=== PATIENT | female | born 1955 | race Caucasian/White ===

== ENCOUNTER 2018-04-29 09:03 | Emergency (ER) | payer MEDICARE, BC ==
--- NOTE | 2018-04-29 09:39 | EDM.PDOC ---
ED HPI GENERAL MEDICAL PROBLEM - General Chief Complaint: Gastrointestinal Problem Stated Complaint: nauseous, weakness, dizziness Time Seen by Provider: 04/29/18 09:38 Source of Information: Reports: Patient History Limitations: Reports: No Limitations - History of Present Illness INITIAL COMMENTS - FREE TEXT/NARRATIVE: pt just finished a course of clindomycin and she now has very severe diarrhea. She is feeling weak and shakey. Onset: Other ( diarrhea started last nite. ) Duration: Hour(s): Location: Reports: Abdomen Associated Symptoms: Reports: Nausea/Vomiting, Other (pt is feeling very weak and shakey. ) Lower Abdomen Pain Score (Numeric/FACES): 5 - Related Data Allergies Allergy/AdvReac Type Severity Reaction Status Date / Time Iodinated Contrast- Oral and Allergy Severe Hives Verified 10/11/13 09:38 IV Dye [Iodinated Contrast Media - IV Dye] codeine Allergy Intermediate Nausea Verified 10/11/13 09:38 Home Meds: Home Meds Acetaminophen [Tylenol] 650 mg PO Q4H PRN 10/11/13 [History] Cyclobenzaprine [Flexeril] 10 mg PO TID PRN 10/11/13 [History] Hydrocodone/Acetaminophen [Vicodin 5-300 mg Tablet] 1 tab PO ASDIRECTED PRN [History] Ibuprofen [Advil] 400 mg PO Q6H PRN 10/11/13 [History] Lactobacillus Combo No.11 [Probiotic] 1 each PO DAILY 10/11/13 [History] Vitamin B Complex 100 NO.2 [B100 Balanced] 100 mg PO DAILY 10/11/13 [History] Past Medical History HEENT History: Reports: Impaired Vision Musculoskeletal History: Reports: Fibromyalgia Immunologic History: Reports: Other (See Below) Other Immunologic History: babesia - Infectious Disease History Infectious Disease History: Reports: Chicken Pox Social & Family History - Tobacco Use Smoking Status *Q: Never Smoker - Caffeine Use Caffeine Use: Reports: Coffee, Tea - Recreational Drug Use Recreational Drug Use: No ED ROS GENERAL - Review of Systems Review Of Systems: See Below Constitutional: Reports: Malaise, Weakness HEENT: Reports: No Symptoms Respiratory: Reports: No Symptoms Cardiovascular: Reports: No Symptoms Endocrine: Reports: No Symptoms GI/Abdominal: Reports: Diarrhea : Reports: No Symptoms Musculoskeletal: Reports: No Symptoms Skin: Reports: No Symptoms ED EXAM, GI/ABD - Physical Exam Exam: See Below Text/Narrative:: pt is lite headed and dizzy. She has had severe diarrhea. She has just finished a course of clindomycin. Exam Limited By: No Limitations General Appearance: Alert, Moderate Distress Ears: Normal TMs Nose: Normal Inspection Throat/Mouth: Normal Inspection Head: Other (pt has a 2 inch laceration In the left posterior area. She has a hematoma. ) Neck: Normal Inspection Respiratory/Chest: No Respiratory Distress Cardiovascular: Regular Rate, Rhythm, Tachycardia GI/Abdominal Exam: Soft, Tender, Other (pt is not distended. ) (Female) Exam: Deferred Rectal (Female) Exam: Deferred Back Exam: Normal Inspection Extremities: Normal Inspection Neurological: Alert, Oriented, Normal Cognition Psychiatric: Normal Affect Course - Vital Signs Last Recorded V/S: Last Vital Signs Temp 36.9 C 04/29/18 09:30 Pulse 105 H 04/29/18 09:30 Resp 12 04/29/18 09:30 BP 132/82 04/29/18 09:30 Pulse Ox 98 04/29/18 09:30 - Orders/Labs/Meds Labs: Laboratory Tests 04/29/18 04/29/18 04/29/18 Range/Units 09:53 09:53 10:03 WBC 11.4 H (4.5-11.0) K/uL RBC 4.44 (3.30-5.50) M/uL Hgb 13.4 (12.0-15.0) g/dL Hct 40.4 (36.0-48.0) % MCV 91 (80-98) fL MCH 30 (27-31) pg MCHC 33 (32-36) % Plt Count 291 (150-400) K/uL Neut % (Auto) 86 H (36-66) % Lymph % (Auto) 6 L (24-44) % [place] % (Auto) 8 H (2-6) % Eos % (Auto) 0 L (2-4) % Baso % (Auto) 0 (0-1) % Sodium 134 L (140-148) mmol/L Potassium 3.7 (3.6-5.2) mmol/L Chloride 101 (100-108) mmol/L Carbon Dioxide 29 (21-32) mmol/L Anion Gap 7.7 (5.0-14.0) mmol/L BUN 10 (7-18) mg/dL Creatinine 0.8 (0.6-1.0) mg/dL Est Cr Clr Drug Dosing 57.67 mL/min Estimated GFR (MDRD) > 60 (>60) Glucose 129 H (74-106) mg/dL Calcium 8.7 (8.5-10.1) mg/dL Total Bilirubin 0.4 (0.2-1.0) mg/dL AST 22 (15-37) U/L ALT 24 (12-78) U/L Alkaline Phosphatase 80 (46-116) U/L Total Protein 6.5 (6.4-8.2) g/dL Albumin 3.4 (3.4-5.0) g/dL Globulin 3.1 (2.3-3.5) g/dL Albumin/Globulin Ratio 1.1 L (1.2-2.2) Urine Color Yellow Urine Appearance Clear Urine pH 7.0 (4.5-8.0) Ur Specific [place] 1.010 (1.008-1.030) Urine Protein Negative (NEGATIVE) mg/dL Urine Glucose (UA) Normal (NEGATIVE) mg/dL Urine Ketones Negative (NEGATIVE) mg/dL Urine Occult Blood Moderate (NEGATIVE) Urine Nitrite Negative (NEGATIVE) Urine Bilirubin Negative (NEGATIVE) Urine Urobilinogen Normal (NORMAL) mg/dL Ur Leukocyte Esterase Negative (NEGATIVE) Urine RBC 5-10 H (0-5) Urine WBC 0-5 (0-5) Ur Epithelial Cells Few Amorphous Sediment Not seen Urine Bacteria Few Urine Mucus Not seen Meds: Medications Discontinued Medications Generic Name Dose Route Start Last Admin Trade Name Rand PRN Reason Stop Dose Admin Ondansetron HCl 4 mg 04/29/18 09:50 04/29/18 10:01 Zofran IVPUSH 04/29/18 09:51 4 mg ONETIME ONE Administration Vancomycin HCl 250 mg 04/29/18 12:15 04/29/18 12:33 Vancocin 250 Mg/5 Ml Soln PO 04/29/18 12:16 Not Given QID ONE Vancomycin HCl 250 mg 04/29/18 12:45 04/29/18 12:33 Vancocin 250 Mg/5 Ml Soln PO 04/29/18 12:46 250 mg ONETIME ONE Administration - Re-Assessments/Exams Free Text/Narrative Re-Assessment/Exam: 04/29/18 13:14 pt was given 2 liters of fluid. she was given 250 mg of vancomycin. She is feeling better. He Cdiff is positive. Departure - Departure Time of Disposition: 13:16 Disposition: Home, Self-Care 01 Condition: Fair Clinical Impression: Clostridium difficile diarrhea, Dehydration - Discharge Information Instructions: Clostridium Difficile Infection Referrals: Hunter Lizama MD [Primary Care Provider] - Forms: ED Department Discharge Care Plan Goals: push fluids, stick with clear liquids in the next 24 hours, vancomycin 250 mg qid po. appt with Dr Lizama in 4-5 days
[2018-04-29] MEDS ORDERED: Ondansetron 4 MG/2 ML SDV IVPUSH ONE (09:50)
[2018-04-29] MEDS ORDERED: Vancomycin 250 MG/5 ML ML Oral Solution PO ONE ×2 (12:15→12:45)
== END 2018-04-29 13:29 | disposition home or self-care (01) ==
LOC: JP.ED 09:03
DX: A04.72 Enterocolitis due to Clostridium difficile, not specified as recurrent (principal); E86.0 Dehydration; Z88.5 Allergy status to narcotic agent; Z91.041 Radiographic dye allergy status
CPT/HCPCS: 36415; 80053; 81001; 85025; 87493; 96374; 99284; A9270; J2405

== ENCOUNTER 2018-05-24 13:26 | Inpatient (IN) | payer MEDICARE, BC ==
[2018-05-24] MEDS ORDERED: Acetaminophen/HYDROcodone 325-5 MG Tab PO PRN (14:24)
[2018-05-24] MEDS ORDERED: Ibuprofen 600 MG Tab PO PRN (14:24)
[2018-05-24] MEDS ORDERED: Sodium Chloride 0.9% 10 ML Syringe FLUSH PRN (14:24)
[2018-05-24] MEDS ORDERED: Acetaminophen 325 MG Tab PO PRN (14:24)
[2018-05-24] MEDS ORDERED: Polyethylene Glycol 3350 Powder 17 GM Packet PO PRN (14:24)
[2018-05-24] MEDS ORDERED: Ondansetron 4 MG Tab.DIS PO PRN (14:24)
--- NOTE | 2018-05-24 14:32 | PCM.HP ---
H&P History of Present Illness - General Date of Service: 05/24/18 Admit Problem/Dx: Admission Diagnosis/Problem Admission Diagnosis/Problem Diverticulitis Source of Information: Patient, Provider History Limitations: Reports: No Limitations - History of Present Illness Initial Comments - Free Text/Narative: Makayla presents as a direct admission from the clinic. She was seen there yesterday for lower abdominal pain of about 5 days' duration. X-rays did not suggest obstruction and she was encouraged to return today if symptoms had not improved since she felt better after getting some IV fluids. She reports ongoing moderate bilateral lower quadrant pain. This is a sharp as well as achy pain that comes and goes in waves. No obvious triggers to make the pain worse. [id number] pain medications have not provided significant relief. She has had some fevers at home though her temperature today has been normal. Temperatures yesterday were in the upper 99 range. She has not had much of an appetite and has had very poor oral intake. She has had occasional blood in her stool as well as some mucus. She does not report chest pain or shortness of breath. No change in bladder habits. No significant myalgias or arthralgias. A CT scan obtained today in the clinic was suggestive of acute diverticulitis versus other colitis and she was sent to the hospital for direct admission and IV antibiotics. Abdomen Pain Score (Numeric/FACES): 3 - Related Data Allergies/Adverse Reactions: Allergies Allergy/AdvReac Type Severity Reaction Status Date / Time Iodinated Contrast- Oral and Allergy Severe Hives Verified 10/11/13 09:38 IV Dye [Iodinated Contrast Media - IV Dye] codeine Allergy Intermediate Nausea Verified 10/11/13 09:38 Home Medications: Home Meds Acetaminophen [Tylenol] 650 mg PO Q4H PRN 10/11/13 [History] Cyclobenzaprine [Flexeril] 10 mg PO TID PRN 10/11/13 [History] Hydrocodone/Acetaminophen [Vicodin 5-300 mg Tablet] 1 tab PO ASDIRECTED PRN [History] Ibuprofen [Advil] 400 mg PO Q6H PRN 10/11/13 [History] Lactobacillus Combo No.11 [Probiotic] 1 each PO DAILY 10/11/13 [History] Vitamin B Complex 100 NO.2 [B100 Balanced] 100 mg PO DAILY 10/11/13 [History] Dicyclomine [Bentyl] 20 mg PO QIDACANDBED 05/24/18 [History] Meloxicam 15 mg PO DAILY PRN 05/24/18 [History] Past Medical History HEENT History: Reports: Impaired Vision Cardiovascular History: Reports: None Gastrointestinal History: Reports: Diverticulosis Musculoskeletal History: Reports: Arthritis, Fibromyalgia Immunologic History: Reports: Other (See Below) Other Immunologic History: babesia - Infectious Disease History Infectious Disease History: Reports: C-Difficile - Past Surgical History HEENT Surgical History: Reports: None Cardiovascular Surgical History: Reports: None GI Surgical History: Reports: None Female Surgical History: Reports: Tubal Ligation Musculoskeletal Surgical History: Reports: None Dermatological Surgical History: Reports: None Social & Family History - Family History Family Medical History: Noncontributory - Tobacco Use Smoking Status *Q: Former Smoker Used Tobacco, but Quit: Yes Month/Year Tobacco Last Used: 28 yrs ago Second Hand Smoke Exposure: No - Caffeine Use Caffeine Use: Reports: Coffee Caffeine Use Comment: 6 cups/day - Alcohol Use Alcohol Use History: No - Recreational Drug Use Recreational Drug Use: No H&P Review of Systems - Review of Systems: Review Of Systems: See Below Free Text/Narrative: A complete 12 point review of systems was obtained. Pertinent positives and negatives are noted in the history of present illness. All other systems were reviewed and were negative except as noted. Exam - Exam Exam: See Below - Vital Signs Vital Signs: Last Vital Signs Temp 36.6 C 05/24/18 13:40 Pulse 85 05/24/18 13:40 Resp 16 05/24/18 13:40 BP 127/77 05/24/18 13:40 Pulse Ox 99 05/24/18 13:40 Weight: 64.501 kg - Exam Quality Assessment: No: Supplemental Oxygen General: Alert, Oriented, Cooperative. No: Mild Distress HEENT: Conjunctiva Clear. No: Mucosa Moist & [place] (dry), Scleral Icterus Neck: Supple, Trachea Midline. No: Lymphadenopathy Lungs: Clear to Auscultation, Normal Respiratory Effort Cardiovascular: Regular Rate, Regular Rhythm. No: Systolic Murmur GI/Abdominal Exam: Soft, No Distention, Tender (lower abdomen, ching LLQ), Abnormal Bowel Sounds (hypoactive ). No: Guarding Back Exam: Normal Inspection, Full Range of Motion Extremities: No Pedal Edema. No: Increased Warmth Peripheral Pulses: 2+: Dorsalis Pedis (L), Dorsalis Pedis (R) Skin: Warm, Dry Neuro Extensive - Mental Status: Alert, Oriented x3, Nl Response to Commands Neuro Extensive - Motor, Sensory, Reflexes: CN II-XII Intact. No: Dysarthria, Abnormal Motor, Tremor Psychiatric: Alert, Normal Affect - Patient Data Result Diagrams: 05/24/18 14:30 05/24/18 14:30 Imaging Impressions Last 24 hrs: CT abd/pelvis - images personally reviewed - there is thickening of the rectosigmoid colon as well as some stranding in the surrounding fat. Moderate diverticulosis noted of the sigmoid colon. Findings consistent with diverticulitis. *Q Meaningful Use (ADM) - VTE Risk Assess *Q Each Risk Factor Represents 1 Point: Obesity ( BMI > 25 kg/m2) Total Score 1 Point Risk Factors: 1 Each Risk Factor Represents 2 Points: Age 60 - 74 Years Total Score 2 Point Risk Factors: 2 Each Risk Factor Represents 3 Points: None Total Score 3 Point Risk Factors: 0 Each Risk Factor Represents 5 Points: None Total Score 5 Point Risk Factors: 0 Venous Thromboembolism Risk Factor Score *Q: 3 - Problem List (1) Acute diverticulitis SNOMED Code(s): 566199658 ICD Code: K57.92 - DVTRCLI OF INTEST, PART UNSP, W/O PERF OR ABSCESS W/O BLEED Status: Acute Current Visit: Yes (2) Dehydration SNOMED Code(s): 84847106 ICD Code: E86.0 - DEHYDRATION Status: Acute Current Visit: No (3) Hypokalemia SNOMED Code(s): 19874969 ICD Code: E87.6 - HYPOKALEMIA Status: Acute Current Visit: Yes Problem List Initiated/Reviewed/Updated: Yes Orders Last 24hrs: Active Orders 24 hr Category Date Time Status Patient Status [ADT] Routine ADT 05/24/18 14:24 Ordered Intake and Output [RC] QSHIFT Care 05/24/18 14:25 Ordered Notify Provider Vital Signs [RC] ASDIRECTED Care 05/24/18 14:25 Ordered Oxygen Therapy [RC] PRN Care 05/24/18 14:24 Ordered Peripheral IV Care [RC] . DIRECTED Care 05/24/18 14:28 Ordered Up ad Faith [RC] ASDIRECTED Care 05/24/18 14:24 Ordered VTE/DVT Education [RC] Per Unit Routine Care 05/24/18 14:24 Ordered Vital Signs [RC] Q4H Care 05/24/18 14:24 Ordered Clear Liquid Diet [DIET] Diet 05/24/18 Dinner Ordered BASIC METABOLIC PANEL,BMP [CHEM] Routine Lab 05/24/18 14:24 Ordered C-REACTIVE PROTEIN [CHEM] Routine Lab 05/24/18 14:24 Ordered CBC WITH AUTO DIFF [HEME] Routine Lab 05/24/18 14:24 Ordered Acetaminophen [Tylenol] Med 05/24/18 14:24 Ordered 650 mg PO Q4H PRN Acetaminophen/HYDROcodone [[place] 325-5 MG] Med 05/24/18 14:24 Ordered 1 tab PO Q4H PRN Dicyclomine [Bentyl] Med 05/24/18 14:24 Ordered 20 mg PO QIDACANDBED PRN Docusate Sodium/Sennosides [Senna Plus] Med 05/24/18 14:24 Ordered 1 tab PO BID PRN Ibuprofen [Motrin] Med 05/24/18 14:24 Ordered 600 mg PO Q6H PRN Lactobacillus Rhamnosus GG [Culturelle] Med 05/24/18 21:00 Ordered 1 cap PO BID Ondansetron [Zofran ODT] Med 05/24/18 14:24 Ordered 4 mg PO Q6H PRN Ondansetron [Zofran] Med 05/24/18 14:24 Ordered 4 mg IV Q6H PRN Piperacillin/Tazobactam [Zosyn] 3.375 gm Med 05/24/18 14:30 Ordered Sodium Chloride 0.9% [Normal Saline] 50 ml IV Q6H Polyethylene Glycol 3350 [MiraLAX] Med 05/24/18 14:24 Ordered 17 gm PO DAILY PRN Sodium Chloride 0.9% @ 125 MLS/HR (1000ml) Med 05/24/18 14:30 Ordered Sodium Chloride 0.9% [Normal Saline] 1,000 ml IV ASDIRECTED Sodium Chloride 0.9% [Saline Flush] Med 05/24/18 14:24 Ordered 10 ml FLUSH ASDIRECTED PRN Peripheral IV Insertion Adult [OM.PC] Routine Oth 05/24/18 14:24 Ordered Sequential Compression Device [OM.PC] Per Unit Routine Oth 05/24/18 14:25 Ordered Resuscitation Status Routine Resus Stat 05/24/18 14:24 Ordered Assessment/Plan Comment:: ASSESSMENT AND PLAN - Acute rectosigmoid diverticulitis - differential does include other causes of colitis though diverticulitis seemed most likely. Examination and history consistent with diverticulitis. There is no evidence for sepsis. Because of her nausea and poor intake she is not safe for outpatient management. It is noted that she has in the past month had a Clostridium difficile infection though Clostridium difficile testing earlier in the week was negative. -Antibiotic coverage with Pip/Tazo -IV fluids -Antinausea medication -Pain control Hypokalemia - Mild and will be replaced via the IV route given her nausea and concern that she may not be able to keep down a potassium supplement. Maintenance issues - - DVT prophylaxis - mechanical - GI prophylaxis - not indicated - Nutrition - clear liquids - Li catheter - not indicated CODE STATUS - full code Admission justification - This patient will be admitted for inpatient services and is medically appropriate meeting medical necessity for inpatient admission as outlined in my documentation. I reasonably expect the patient will require inpatient services that span a period time over 2 midnights. I reasonably expect this patient to be discharged or transferred within 96 hours after admission to the [facility]. Disposition - anticipate discharge to home after the hospital stay Primary care physician - Dr. Dl Blackwell M.D.
[2018-05-24] MEDS: Sodium Chloride 0.9% 1,000 ML IV SCH ×2 (15:15→23:51)
[2018-05-24] MEDS: Piperacillin/Tazobactam/Dext 3.375 GM in Premix Bag 1 BAG IV SCH ×2 (15:26→21:34)
[2018-05-24] MEDS ORDERED: Potassium Chloride 100 ML ONE ×2 (18:46→20:59)
[2018-05-24] MEDS: Potassium Chloride 20 MEQ, Lidocaine 1% 2 ML in Sodium Chloride 0.9% 100 ML IV SCH ×2 (18:50→21:06)
[2018-05-24] MEDS: Lactobacillus Rhamnosus GG (Probiotic) Cap PO SCH (21:24)
[2018-05-24] MEDS: Dicyclomine 10 MG Cap PO PRN (23:56)
[2018-05-25] MEDS: Piperacillin/Tazobactam/Dext 3.375 GM in Premix Bag 1 BAG IV SCH ×4 (03:10→22:03)
[2018-05-25] MEDS: Ondansetron 4 MG/2 ML SDV IV PRN ×2 (03:40→20:15)
[2018-05-25] MEDS: Sodium Chloride 0.9% 1,000 ML IV SCH (07:14)
[2018-05-25] MEDS: Dicyclomine 10 MG Cap PO PRN ×3 (07:14→20:17)
[2018-05-25] MEDS: Lactobacillus Rhamnosus GG (Probiotic) Cap PO SCH ×2 (08:16→20:17)
--- NOTE | 2018-05-25 09:26 | PCM.PN ---
- General Info Date of Service: 05/25/18 Subjective Update: No acute events overnight. Pain is a little bit better today but she still has moderate lower abdominal pain. Still having some nausea but tolerating clear liquids without vomiting. She did not have any fevers overnight. She continues to have occasional loose stools with some mucus. She feels weak and tired. Functional Status: Reports: Pain Controlled, Tolerating Diet - Review of Systems General: Denies: Fever Gastrointestinal: Reports: Abdominal Pain - Patient Data Vitals - Most Recent: Last Vital Signs Temp 36.2 C 05/25/18 07:11 Pulse 85 05/25/18 07:11 Resp 16 05/25/18 07:11 BP 139/92 H 05/25/18 07:11 Pulse Ox 97 05/25/18 07:11 Weight - Most Recent: 64.455 kg I&O - Last 24 Hours: Intake & Output 05/24/18 05/25/18 05/25/18 22:59 06:59 14:59 Intake Total 1063 2624 170 Output Total 800 500 500 Balance 263 2124 -330 Lab Results Last 24 Hours: Laboratory Results - last 24 hr 05/24/18 05/24/18 05/25/18 Range/Units 14:30 14:30 05:26 WBC 4.2 L (4.5-11.0) K/uL RBC 4.02 (3.30-5.50) M/uL Hgb 12.2 (12.0-15.0) g/dL Hct 36.6 (36.0-48.0) % MCV 91 (80-98) fL MCH 30 (27-31) pg MCHC 33 (32-36) % Plt Count 267 (150-400) K/uL Neut % (Auto) 47 (36-66) % Lymph % (Auto) 28 (24-44) % [place] % (Auto) 19 H (2-6) % Eos % (Auto) 5 H (2-4) % Baso % (Auto) 1 (0-1) % Sodium 140 142 (140-148) mmol/L Potassium 3.1 L 3.2 L (3.6-5.2) mmol/L Chloride 102 104 (100-108) mmol/L Carbon Dioxide 30 27 (21-32) mmol/L Anion Gap 11.1 14.2 H (5.0-14.0) mmol/L BUN 3 L D 2 L (7-18) mg/dL Creatinine 0.7 0.8 (0.6-1.0) mg/dL Est Cr Clr Drug Dosing 65.90 57.67 mL/min Estimated GFR (MDRD) > 60 > 60 (>60) Glucose 81 84 (74-106) mg/dL Calcium 8.6 8.6 (8.5-10.1) mg/dL C-Reactive Protein 9.53 H (0.0-0.3) mg/dL Med Orders - Current: Current Medications Acetaminophen (Tylenol) 650 mg PO Q4H PRN PRN Reason: Pain (Mild 1-3)/fever Last Admin: 05/24/18 21:07 Dose: 650 mg Hydrocodone Bitart/Acetaminophen ([place] 325-5 Mg) 1 tab PO Q4H PRN PRN Reason: Pain (moderate 4-6) Last Admin: 05/25/18 03:39 Dose: 1 tab Dicyclomine HCl (Bentyl) 20 mg PO QIDACANDBED PRN PRN Reason: abdominal cramps Last Admin: 05/25/18 07:14 Dose: 20 mg Piperacillin/Tazobactam/ (Dextrose 3.375 gm/ Premix) 50 mls @ 100 mls/hr IV Q6H MEGAN Last Admin: 05/25/18 08:16 Dose: 100 mls/hr Potassium Chloride/Sodium Chloride (Normal Saline With 40 Meq Kcl) 1,000 mls @ 100 mls/hr IV ASDIRECTED ON LICENSE OF [facility] Ibuprofen (Motrin) 600 mg PO Q6H PRN PRN Reason: Pain/Fever Ketorolac Tromethamine (Toradol) 30 mg IVPUSH Q6H PRN PRN Reason: Pain Stop: 05/30/18 09:25 Lactobacillus Rhamnosus (Culturelle) 1 cap PO BID MEGAN Last Admin: 05/25/18 08:16 Dose: 1 cap Ondansetron HCl (Zofran Odt) 4 mg PO Q6H PRN PRN Reason: Nausea able to take PO Last Admin: 05/24/18 18:10 Dose: 4 mg Ondansetron HCl (Zofran) 4 mg IV Q6H PRN PRN Reason: Nausea/Vomiting Last Admin: 05/25/18 03:40 Dose: 4 mg Polyethylene Glycol (Miralax) 17 gm PO DAILY PRN PRN Reason: Constipation Senna/Docusate Sodium (Senna Plus) 1 tab PO BID PRN PRN Reason: Constipation Sodium Chloride (Saline Flush) 10 ml FLUSH ASDIRECTED PRN PRN Reason: Keep Vein Open Discontinued Medications Sodium Chloride (Normal Saline) 1,000 mls @ 125 mls/hr IV ASDIRECTED MEGAN Last Admin: 05/25/18 07:14 Dose: 125 mls/hr Potassium Chloride 20 meq/Lidocaine HCl 2 ml/ Sodium Chloride 112 mls @ 50 mls/ hr IV Q2H ON LICENSE OF [facility] Stop: 05/24/18 21:14 Last Admin: 05/24/18 21:06 Dose: 50 mls/hr Potassium Chloride (Kcl 20 Meq In Water 100 Ml) Confirm Administered Dose 100 mls @ as directed .ROUTE .STK-MED ONE Stop: 05/24/18 18:47 Last Admin: 05/24/18 18:51 Dose: Not Given Potassium Chloride (Kcl 20 Meq In Water 100 Ml) Confirm Administered Dose 100 mls @ as directed .ROUTE .STK-MED ONE Stop: 05/24/18 21:00 Last Admin: 05/24/18 21:07 Dose: Not Given - Exam Quality Assessment: No: Supplemental Oxygen General: Alert, Oriented, Cooperative, No Acute Distress Lungs: Normal Respiratory Effort GI/Abdominal Exam: Normal Bowel Sounds, Soft, No Distention, Tender Extremities: No Pedal Edema Psy/Mental Status: Alert, Normal Affect - Problem List & Annotations (1) Acute diverticulitis SNOMED Code(s): 524577148 Code(s): K57.92 - DVTRCLI OF INTEST, PART UNSP, W/O PERF OR ABSCESS W/O BLEED Status: Acute Current Visit: Yes (2) Dehydration SNOMED Code(s): 86229828 Code(s): E86.0 - DEHYDRATION Status: Acute Current Visit: No (3) Hypokalemia SNOMED Code(s): 73275653 Code(s): E87.6 - HYPOKALEMIA Status: Acute Current Visit: Yes - Problem List Review Problem List Initiated/Reviewed/Updated: Yes - My Orders Last 24 Hours: My Active Orders 05/24/18 14:24 Patient Status [ADT] Routine Oxygen Therapy [RC] PRN Up ad Faith [RC] ASDIRECTED VTE/DVT Education [RC] Per Unit Routine Vital Signs [RC] Q4H Acetaminophen [Tylenol] 650 mg PO Q4H PRN Acetaminophen/HYDROcodone [[place] 325-5 MG] 1 tab PO Q4H PRN Dicyclomine [Bentyl] 20 mg PO QIDACANDBED PRN Docusate Sodium/Sennosides [Senna Plus] 1 tab PO BID PRN Ibuprofen [Motrin] 600 mg PO Q6H PRN Ondansetron [Zofran ODT] 4 mg PO Q6H PRN Ondansetron [Zofran] 4 mg IV Q6H PRN Polyethylene Glycol 3350 [MiraLAX] 17 gm PO DAILY PRN Sodium Chloride 0.9% [Saline Flush] 10 ml FLUSH ASDIRECTED PRN Peripheral IV Insertion Adult [OM.PC] Routine Resuscitation Status Routine 05/24/18 14:25 Intake and Output [RC] QSHIFT Notify Provider Vital Signs [RC] ASDIRECTED Sequential Compression Device [OM.PC] Per Unit Routine 05/24/18 14:28 Peripheral IV Care [RC] . DIRECTED 05/24/18 15:00 Piperacillin/Tazobactam/Dext [Zosyn in Dextrose Iso-Osmotic 3.375 GM] 3.375 gm Premix Bag 1 bag IV Q6H 05/24/18 21:00 Lactobacillus Rhamnosus GG [Culturelle] 1 cap PO BID 05/24/18 Dinner Clear Liquid Diet [DIET] 05/25/18 09:25 Ketorolac [Toradol] 30 mg IVPUSH Q6H PRN 05/25/18 09:30 Sodium Chloride 0.9% with KCl [Normal Saline with 40 mEq KCl] 1,000 ml IV ASDIRECTED 05/26/18 05:00 BASIC METABOLIC PANEL,BMP [CHEM] Timed - Plan Plan:: ASSESSMENT AND PLAN - Acute rectosigmoid diverticulitis - little better today but still having pain and nausea. Tolerating clear liquids. No fevers overnight. -Antibiotic coverage with Pip/Tazo -IV fluids -Antinausea medication -Pain control (adding ketorolac today) Hypokalemia - Mild and only slightly improved with supplementation yesterday. -IV fluids with potassium Maintenance issues - - DVT prophylaxis - mechanical - GI prophylaxis - not indicated - Nutrition - full liquids Disposition - anticipate discharge to home after the hospital stay Primary care physician - Dr. Dl Blackwell M.D.
[2018-05-25] MEDS: Ketorolac 30 MG/ML SDV IVPUSH PRN ×2 (10:15→20:18)
[2018-05-25] MEDS: Sodium Chloride 0.9% with KCl 1,000 ML IV SCH ×2 (11:31→21:57)
[2018-05-26] MEDS: Piperacillin/Tazobactam/Dext 3.375 GM in Premix Bag 1 BAG IV SCH ×2 (03:24→08:12)
[2018-05-26] MEDS: Lactobacillus Rhamnosus GG (Probiotic) Cap PO SCH (08:12)
[2018-05-26] MEDS: Sodium Chloride 0.9% with KCl 1,000 ML IV SCH (09:07)
[2018-05-26] MEDS: Dicyclomine 10 MG Cap PO PRN (09:12)
--- NOTE | 2018-05-26 10:07 | PCM.DCSUM1 ---
Discharge Summary - Hospital Course Brief History: 63-year-old female with fibromyalgia and recent Clostridium difficile infection who presented to the clinic with left lower quadrant abdominal pain. She was admitted for management of acute diverticulitis. Diagnosis: Stroke: No - Discharge Data Discharge Date: 05/26/18 Discharge Disposition: Home, Self-Care 01 Condition: Good - Discharge Diagnosis/Problem(s) (1) Acute diverticulitis SNOMED Code(s): 743512355 ICD Code: K57.92 - DVTRCLI OF INTEST, PART UNSP, W/O PERF OR ABSCESS W/O BLEED Status: Acute Current Visit: Yes (2) Dehydration SNOMED Code(s): 59827811 ICD Code: E86.0 - DEHYDRATION Status: Acute Current Visit: No (3) Hypokalemia SNOMED Code(s): 59014794 ICD Code: E87.6 - HYPOKALEMIA Status: Acute Current Visit: Yes - Patient Summary/Data Hospital Course: Maakyla initially presented to the clinic with persistent abdominal pain and mucus- like diarrhea. She had a CT scan there that revealed acute diverticulitis and she was directly admitted for management. She was also found to have hypokalemia. At the time of admission she was started on Pip/Tazo and provided symptomatic management for both pain and nausea. We supplemented her potassium. Overnight following admission she had mild improvement in her pain but had persistent mucus-like stools and occasionally hematochezia which was mild. Her potassium improved slightly but did not normalize with the initial round of supplementation. During the second day and over the second night she had additional improvement in her pain. Her potassium level has normalized. She has tolerated her diet and then advance to full liquids. Her pain is down to 2 out of 10 at this time. She has not had any fevers. She feels comfortable with outpatient management at this time given her significant improvement. She will be on Augmentin for 6 more days. She has acetaminophen as well as ibuprofen and a supply of hydrocodone at home to manage her pain. She also has Bentyl which has been helping with her abdominal pain. She will follow-up if symptoms do not continue to get better or if they get worse. - Patient Instructions Diet: Usual Diet as Tolerated Diet, Other: soft and bland foods for one week Activity: As Tolerated Showering/Bathing: May Shower Notify Provider of: Fever, Increased Pain, Nausea and/or Vomiting Other/Special Instructions: 1. You were in the hospital for management of acute diverticulitis. I recommend 6 additional days of antibiotic therapy with Augmentin. Your next dose is due tonight. You can use acetaminophen and/or ibuprofen for mild pain. If you have moderate or severe pain you could use your hydrocodone. I recommend a soft and bland diet for the next week before returning to your usual diet. 2. Continue your usual home medications as previously prescribed including your probiotic. 3. Seek medical attention if you have fever greater than 101, severe abdominal pain or if you have persistent vomiting or diarrhea. - Discharge Plan *PRESCRIPTION DRUG MONITORING PROGRAM REVIEWED*: Not Applicable *COPY OF PRESCRIPTION DRUG MONITORING REPORT IN PATIENT BRIAN: Not Applicable Prescriptions/Med Rec: Amoxicillin/Clavulanate K [Augmentin 875-125 MG] 1 tab PO BID #12 tab Home Medications: Home Meds Acetaminophen [Tylenol] 650 mg PO Q4H PRN 10/11/13 [History] Cyclobenzaprine [Flexeril] 10 mg PO TID PRN 10/11/13 [History] Hydrocodone/Acetaminophen [Vicodin 5-300 mg Tablet] 1 tab PO ASDIRECTED PRN [History] Ibuprofen [Advil] 400 mg PO Q6H PRN 10/11/13 [History] Lactobacillus Combo No.11 [Probiotic] 1 each PO DAILY 10/11/13 [History] Vitamin B Complex 100 NO.2 [B100 Balanced] 100 mg PO DAILY 10/11/13 [History] Dicyclomine [Bentyl] 20 mg PO QIDACANDBED 05/24/18 [History] Meloxicam 15 mg PO DAILY PRN 05/24/18 [History] Amoxicillin/Clavulanate K [Augmentin 875-125 MG] 1 tab PO BID #12 tab 05/26/18 [ Rx] Patient Handouts: Amoxicillin; Clavulanic Acid tablets, Diverticulitis Referrals: Hunter Lizama MD [Primary Care Provider] - (f/u if symptoms do not continue to get better or if they get worse) - Discharge Summary/Plan Comment DC Time >30 min.: No - Patient Data Vitals - Most Recent: Last Vital Signs Temp 36.4 C 05/26/18 08:10 Pulse 78 05/26/18 08:10 Resp 18 05/26/18 08:10 BP 154/82 H 05/26/18 08:10 Pulse Ox 98 05/26/18 08:10 Weight - Most Recent: 64.455 kg I&O - Last 24 hours: Intake & Output 05/25/18 05/26/18 05/26/18 22:59 06:59 14:59 Intake Total 740 1012 50 Output Total 1000 500 300 Balance -260 512 -250 Lab Results - Last 24 hrs: Laboratory Results - last 24 hr 05/26/18 Range/Units 04:59 Sodium 140 (140-148) mmol/L Potassium 3.6 (3.6-5.2) mmol/L Chloride 105 (100-108) mmol/L Carbon Dioxide 26 (21-32) mmol/L Anion Gap 8.9 (5.0-14.0) mmol/L BUN 3 L (7-18) mg/dL Creatinine 0.8 (0.6-1.0) mg/dL Est Cr Clr Drug Dosing 57.67 mL/min Estimated GFR (MDRD) > 60 (>60) Glucose 83 (74-106) mg/dL Calcium 8.7 (8.5-10.1) mg/dL Med Orders - Current: Current Medications Acetaminophen (Tylenol) 650 mg PO Q4H PRN PRN Reason: Pain (Mild 1-3)/fever Last Admin: 05/24/18 21:07 Dose: 650 mg Hydrocodone Bitart/Acetaminophen ([place] 325-5 Mg) 1 tab PO Q4H PRN PRN Reason: Pain (moderate 4-6) Last Admin: 05/25/18 03:39 Dose: 1 tab Dicyclomine HCl (Bentyl) 20 mg PO QIDACANDBED PRN PRN Reason: abdominal cramps Last Admin: 05/26/18 09:12 Dose: 20 mg Piperacillin/Tazobactam/ (Dextrose 3.375 gm/ Premix) 50 mls @ 100 mls/hr IV Q6H MEGAN Last Admin: 05/26/18 08:12 Dose: 100 mls/hr Potassium Chloride/Sodium Chloride (Normal Saline With 40 Meq Kcl) 1,000 mls @ 100 mls/hr IV ASDIRECTED MEGAN Last Admin: 05/26/18 09:07 Dose: 100 mls/hr Ibuprofen (Motrin) 600 mg PO Q6H PRN PRN Reason: Pain/Fever Ketorolac Tromethamine (Toradol) 30 mg IVPUSH Q6H PRN PRN Reason: Pain Stop: 05/30/18 09:25 Last Admin: 05/25/18 20:18 Dose: 30 mg Lactobacillus Rhamnosus (Culturelle) 1 cap PO BID MEGAN Last Admin: 05/26/18 08:12 Dose: 1 cap Ondansetron HCl (Zofran Odt) 4 mg PO Q6H PRN PRN Reason: Nausea able to take PO Last Admin: 05/24/18 18:10 Dose: 4 mg Ondansetron HCl (Zofran) 4 mg IV Q6H PRN PRN Reason: Nausea/Vomiting Last Admin: 05/25/18 20:15 Dose: 4 mg Polyethylene Glycol (Miralax) 17 gm PO DAILY PRN PRN Reason: Constipation Senna/Docusate Sodium (Senna Plus) 1 tab PO BID PRN PRN Reason: Constipation Sodium Chloride (Saline Flush) 10 ml FLUSH ASDIRECTED PRN PRN Reason: Keep Vein Open Discontinued Medications Sodium Chloride (Normal Saline) 1,000 mls @ 125 mls/hr IV ASDIRECTED [facility] Last Admin: 05/25/18 07:14 Dose: 125 mls/hr Potassium Chloride 20 meq/Lidocaine HCl 2 ml/ Sodium Chloride 112 mls @ 50 mls/ hr IV Q2H [facility] Stop: 05/24/18 21:14 Last Admin: 05/24/18 21:06 Dose: 50 mls/hr Potassium Chloride (Kcl 20 Meq In Water 100 Ml) Confirm Administered Dose 100 mls @ as directed .ROUTE .STK-MED ONE Stop: 05/24/18 18:47 Last Admin: 05/24/18 18:51 Dose: Not Given Potassium Chloride (Kcl 20 Meq In Water 100 Ml) Confirm Administered Dose 100 mls @ as directed .ROUTE .STK-MED ONE Stop: 05/24/18 21:00 Last Admin: 05/24/18 21:07 Dose: Not Given - Exam Quality Assessment: Denies: Supplemental Oxygen General: Reports: Alert, Oriented, Cooperative, No Acute Distress GI/Abdominal Exam: Soft, No Distention Extremities: No Pedal Edema Psy/Mental Status: Reports: Alert, Normal Affect
== END 2018-05-26 11:30 | disposition home or self-care (01) | DRG 392 ==
LOC: JP.MS 13:26
PROVIDERS: ADMIT Internal Medicine; ATTEND Internal Medicine
DX: K57.32 Diverticulitis of large intestine without perforation or abscess without bleeding (principal); E86.0 Dehydration; E87.6 Hypokalemia; M79.7 Fibromyalgia; M19.90 Unspecified osteoarthritis, unspecified site; H54.7 Unspecified visual loss; Z86.19 Personal history of other infectious and parasitic diseases; Z91.041 Radiographic dye allergy status; Z79.899 Other long term (current) drug therapy; Z87.891 Personal history of nicotine dependence
CPT/HCPCS: 36415; 80048; 85025; 86140; A9270-GY; J1885; J2405; J2543; J3480; J7030

== ENCOUNTER 2019-05-30 09:23 | Emergency (ER) | payer BC, MEDICARE ==
[2019-05-30] MEDS ORDERED: Sodium Chloride 0.9% 10 ML Syringe FLUSH PRN (09:48)
[2019-05-30] MEDS ORDERED: Nitroglycerin 0.4 MG Tab.SL SL PRN (09:48)
[2019-05-30] MEDS ORDERED: Morphine 4 MG/ML Syringe IVPUSH PRN (09:48)
[2019-05-30] MEDS ORDERED: Ondansetron 4 MG/2 ML SDV IVPUSH ONE (09:49)
--- NOTE | 2019-05-30 09:52 | EDM.PDOC ---
ED HPI GENERAL MEDICAL PROBLEM - General Chief Complaint: Chest Pain Stated Complaint: CHEST PAIN Time Seen by Provider: 05/30/19 09:48 Source of Information: Reports: Patient, Family, RN Notes Reviewed History Limitations: Reports: No Limitations - History of Present Illness INITIAL COMMENTS - FREE TEXT/NARRATIVE: 64-year-old female presents emergency department today complaint of chest pain, she states the pain started about an hour and a half prior to presentation to the ED initially started with some discomfort in her left arm this then progressed up to her arm into her jaw and then chest pressure, she has had nausea no vomiting she has had diaphoresis and became short of breath she believes with some anxiety. She does not smoke cigarettes does have a family history with her dad myocardial infarction in her 60s she herself has no cardiac history. Face/Facial Pain Score (Numeric/FACES): 3 - Related Data Allergies Allergy/AdvReac Type Severity Reaction Status Date / Time Iodinated Contrast Media Allergy Severe Hives Verified 05/30/19 09:31 [Iodinated Contrast Media - IV Dye] codeine Allergy Intermediate Nausea Verified 05/30/19 09:31 Home Meds: Home Meds Acetaminophen [Tylenol] 650 mg PO Q4H PRN 10/11/13 [History] Cyclobenzaprine [Flexeril] 10 mg PO TID PRN 10/11/13 [History] Hydrocodone/Acetaminophen [Vicodin 5-300 mg Tablet] 1 tab PO ASDIRECTED PRN [History] Ibuprofen [Advil] 400 mg PO Q6H PRN 10/11/13 [History] Lactobacillus Combo No.11 [Probiotic] 1 each PO DAILY 10/11/13 [History] Vitamin B Complex 100 NO.2 [B100 Balanced] 100 mg PO DAILY 10/11/13 [History] Dicyclomine [Bentyl] 20 mg PO QIDACANDBED 05/24/18 [History] Past Medical History HEENT History: Reports: Impaired Vision Gastrointestinal History: Reports: Diverticulosis [employer] History: Reports: Musculoskeletal History: Reports: Arthritis, Fibromyalgia Immunologic History: Reports: Other (See Below) Other Immunologic History: babesia - Infectious Disease History Infectious Disease History: Reports: C-Difficile - Past Surgical History Head Surgeries/Procedures: Reports: None HEENT Surgical History: Reports: None Cardiovascular Surgical History: Reports: None GI Surgical History: Reports: None Female Surgical History: Reports: Tubal Ligation Musculoskeletal Surgical History: Reports: None Dermatological Surgical History: Reports: None Social & Family History - Family History Family Medical History: Noncontributory - Tobacco Use Smoking Status *Q: Former Smoker Used Tobacco, but Quit: Yes Month/Year Tobacco Last Used: 1988 Second Hand Smoke Exposure: No - Caffeine Use Caffeine Use: Reports: Coffee Caffeine Use Comment: 6 cups/day - Recreational Drug Use Recreational Drug Use: No ED ROS GENERAL - Review of Systems Review Of Systems: See Below Constitutional: Reports: Diaphoresis HEENT: Reports: No Symptoms Respiratory: Reports: Shortness of Breath Cardiovascular: Reports: Chest Pain GI/Abdominal: Reports: Nausea. Denies: Abdominal Pain ED EXAM, GENERAL - Physical Exam Exam: See Below Exam Limited By: No Limitations General Appearance: Alert, WD/WN, No Apparent Distress Respiratory/Chest: No Respiratory Distress, Lungs Clear, Normal Breath Sounds, No Accessory Muscle Use, Chest Non-Tender Cardiovascular: Regular Rate, Rhythm, No Murmur GI/Abdominal: Soft, Non-Tender Course - Vital Signs Last Recorded V/S: Last Vital Signs Temp 97.0 F 05/30/19 09:36 Pulse 61 05/30/19 11:24 Resp 12 05/30/19 11:24 BP 139/78 05/30/19 11:24 Pulse Ox 97 05/30/19 11:24 - Orders/Labs/Meds Orders: Active Orders 24 hr Category Date Time Status Cardiac Monitoring [RC] .As Directed Care 05/30/19 09:48 Active EKG Documentation Completion [RC] ASDIRECTED Care 05/30/19 09:49 Active Peripheral IV Care [RC] . DIRECTED Care 05/30/19 09:49 Active Morphine Med 05/30/19 09:48 Active 4 mg IVPUSH Q10M PRN Nitroglycerin [Nitrostat] Med 05/30/19 09:48 Active 0.4 mg SL Q5M PRN Sodium Chloride 0.9% [Saline Flush] Med 05/30/19 09:48 Active 10 ml FLUSH ASDIRECTED PRN Peripheral IV Insertion Adult [OM.PC] Stat Oth 05/30/19 09:48 Ordered Saline Lock Insert [OM.PC] Stat Oth 05/30/19 09:48 Ordered EKG 12 Lead [EK] Stat Ther 05/30/19 09:49 Ordered Medication Orders Morphine Sulfate (Morphine) 4 mg IVPUSH Q10M PRN PRN Reason: Chest Pain Stop: 05/31/19 09:49 Last Admin: 05/30/19 09:54 Dose: 4 mg Nitroglycerin (Nitrostat) 0.4 mg SL Q5M PRN PRN Reason: Chest Pain Stop: 05/31/19 09:49 Sodium Chloride (Saline Flush) 10 ml FLUSH ASDIRECTED PRN PRN Reason: Keep Vein Open Last Admin: 05/30/19 09:58 Dose: 10 ml Labs: Laboratory Tests 05/30/19 05/30/19 05/30/19 Range/Units 09:35 09:35 12:35 WBC 6.6 (4.5-11.0) K/uL RBC 4.41 (3.30-5.50) M/uL Hgb 13.4 (12.0-15.0) g/dL Hct 41.3 (36.0-48.0) % MCV 94 (80-98) fL MCH 30 (27-31) pg MCHC 32 (32-36) % Plt Count 290 (150-400) K/uL Neut % (Auto) 51 (36-66) % Lymph % (Auto) 35 (24-44) % Pettis % (Auto) 10 H (2-6) % Eos % (Auto) 3 (2-4) % Baso % (Auto) 1 (0-1) % Sodium 140 (140-148) mmol/L Potassium 3.6 (3.6-5.2) mmol/L Chloride 102 (100-108) mmol/L Carbon Dioxide 26 (21-32) mmol/L Anion Gap 11.6 (5.0-14.0) mmol/L BUN 15 D (7-18) mg/dL Creatinine 0.8 (0.6-1.0) mg/dL Est Cr Clr Drug Dosing 59.54 mL/min Estimated GFR (MDRD) > 60 (>60) Glucose 97 (74-106) mg/dL Calcium 9.1 (8.5-10.1) mg/dL Total Bilirubin 0.3 (0.2-1.0) mg/dL AST 22 (15-37) U/L ALT 22 (12-78) U/L Alkaline Phosphatase 96 (46-116) U/L Troponin I < 0.017 < 0.017 (0.000-0.056) ng/mL Total Protein 7.1 (6.4-8.2) g/dL Albumin 3.9 (3.4-5.0) g/dL Globulin 3.2 (2.3-3.5) g/dL Albumin/Globulin Ratio 1.2 (1.2-2.2) Meds: Medications Generic Name Dose Route Start Last Admin Trade Name Freq PRN Reason Stop Dose Admin Morphine Sulfate 4 mg 05/30/19 09:48 05/30/19 09:54 Morphine IVPUSH 05/31/19 09:49 4 mg Q10M PRN Administration Chest Pain Nitroglycerin 0.4 mg 05/30/19 09:48 Nitrostat SL 05/31/19 09:49 Q5M PRN Chest Pain Sodium Chloride 10 ml 05/30/19 09:48 05/30/19 09:58 Saline Flush FLUSH 10 ml ASDIRECTED PRN Administration Keep Vein Open Discontinued Medications Generic Name Dose Route Start Last Admin Trade Name Freq PRN Reason Stop Dose Admin Ondansetron HCl 4 mg 05/30/19 09:49 05/30/19 09:54 Zofran IVPUSH 05/30/19 09:50 4 mg ONETIME ONE Administration - Re-Assessments/Exams Free Text/Narrative Re-Assessment/Exam: 05/30/19 10:54 heart score 2 low risk EDACS 18 not low risk Departure - Departure Time of Disposition: 13:18 Disposition: Home, Self-Care 01 Condition: Fair Clinical Impression: Chest pain Qualifiers: Chest pain type: unspecified Qualified Code(s): R07.9 - Chest pain, unspecified Referrals: Hunter Lizama MD [Primary Care Provider] - Forms: ED Department Discharge Additional Instructions: Please report for your stress test next week and then follow up with Dr. Lizama for further evaluation, call return to the emergency department with worsening of symptoms - My Orders Last 24 Hours: My Active Orders 05/30/19 09:48 Cardiac Monitoring [RC] .As Directed Morphine 4 mg IVPUSH Q10M PRN Nitroglycerin [Nitrostat] 0.4 mg SL Q5M PRN Sodium Chloride 0.9% [Saline Flush] 10 ml FLUSH ASDIRECTED PRN Peripheral IV Insertion Adult [OM.PC] Stat Saline Lock Insert [OM.PC] Stat 05/30/19 09:49 EKG Documentation Completion [RC] ASDIRECTED Peripheral IV Care [RC] . DIRECTED EKG 12 Lead [EK] Stat - Assessment/Plan Last 24 Hours: My Active Orders 05/30/19 09:48 Cardiac Monitoring [RC] .As Directed Morphine 4 mg IVPUSH Q10M PRN Nitroglycerin [Nitrostat] 0.4 mg SL Q5M PRN Sodium Chloride 0.9% [Saline Flush] 10 ml FLUSH ASDIRECTED PRN Peripheral IV Insertion Adult [OM.PC] Stat Saline Lock Insert [OM.PC] Stat 05/30/19 09:49 EKG Documentation Completion [RC] ASDIRECTED Peripheral IV Care [RC] . DIRECTED EKG 12 Lead [EK] Stat Plan: Assessment Acuity = acute Site and laterality = chest pain Etiology = unclear etiology Manifestations = none Location of injury = Home Lab values = CBC, CMP unremarkable troponin negative 2, EKG shows no sign of ischemia chest x-ray reveals no acute process Plan She is set up for a Cardiolite exercise stress test she will then follow-up with her primary care after the stress test for further evaluation next week This note was dictated using [employer] voice recognition software please call with any questions on syntax or grammar.
--- NOTE | 2019-05-30 10:40 | CRLCR ---
INDICATION: Chest pain. TECHNIQUE: Portable AP image of the chest. COMPARISON: None. FINDINGS: Lungs clear. No pleural effusion or obvious pneumothorax. Heart size and pulmonary vasculature within normal limits. No obvious rib fracture or other significant osseous abnormality. IMPRESSION: Negative chest. Dictated by Christiano Daley MD @ May 30 2019 10:37AM Signed by Dr. Christiano Daley @ May 30 2019 10:39AM
== END 2019-05-30 13:31 | disposition home or self-care (01) ==
LOC: JP.ED 09:23
DX: R07.9 Chest pain, unspecified (principal); M19.90 Unspecified osteoarthritis, unspecified site; Z87.891 Personal history of nicotine dependence; Z88.5 Allergy status to narcotic agent; Z91.041 Radiographic dye allergy status; Z79.899 Other long term (current) drug therapy
CPT/HCPCS: 36415; 71045; 80053; 84484; 85025; 93005; 96374; 96375; 99285; J2270; J2405; 93010; 99284

== ENCOUNTER 2021-03-31 20:33 | Emergency (ER) | payer MEDICARE ==
[2021-03-31] MEDS ORDERED: HYDROmorphone 0.5 MG/0.5 ML Syringe IM ONE (21:29)
[2021-03-31] MEDS ORDERED: Diphtheria,Pertussis(Acell),Tetanus Vaccine 0.5 ML Syringe IM ONE (21:41)
[2021-03-31] MEDS ORDERED: ceFAZolin 1 GM in Premix Bag 1 BAG IV ONE (22:21)
[2021-03-31] MEDS ORDERED: ceFAZolin 1 GM Vial ONE (22:36)
[2021-03-31] MEDS ORDERED: Sodium Chloride 0.9% 50 ML ONE (22:37)
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
[2021-03-31] MEDS ORDERED: Povidone-Iodine 10% Soln 118.25 ML Bottle TOP STA (23:13)
[2021-03-31] MEDS ORDERED: Povidone-Iodine 10% Soln 118.25 ML Bottle ONE (23:15)
[2021-04-01] MEDS ORDERED: Bupivacaine 0.5% 10 ML SDV INJECT ONE (00:30)
[2021-04-01] MEDS ORDERED: Bacitracin Oint 1 GM U/D Packet TOP ONE (01:33)
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
== END 2021-04-01 02:00 | disposition home or self-care (01) ==
LOC: JP.ED 20:33
DX: S61.244A Puncture wound with foreign body of right ring finger without damage to nail, initial encounter (principal); Z88.5 Allergy status to narcotic agent; Z91.041 Radiographic dye allergy status; Z23 Encounter for immunization; W34.09XA Accidental discharge from other specified firearms, initial encounter
CPT/HCPCS: 12001; 73130; 76000; 90471; 90715; 96365; 96372; 99284; J0690; J1170; J3490